=== PATIENT | male | born 1990 | race Caucasian/White ===

== ENCOUNTER 2017-05-28 10:44 | Emergency (ER) | payer BC ==
[2017-05-28 10:53] VITALS: BP 138/89
--- NOTE | 2017-05-28 11:47 | UC ---
Abdominal Pain Male HPI - HPI Summary HPI Summary: This is an otherwise healthy 27 yo male who presents with c/o of diarrhea and abdominal pain x 5d. He denies associated nausea or vomiting. His appetite has been fair. Denies associated fever. No sick contacts. He reports an associated bloated sensation. He states his pain is usually a lower abdominal pressure and cramping sensation. His stool is loose to watery. No hematachezia. He reports recent black stool but also started Pepto for symptom management. In addition to Pepto he's been using simethicone with some improvement. - History of Current Complaint Chief Complaint: UCAbdominalPain Stated Complaint: ABDOMINAL COMPLAINT - Allergies/Home Medications Allergies/Adverse Reactions: Allergies Allergy/AdvReac Type Severity Reaction Status Date / Time No Known Allergies Allergy Verified 05/28/17 10:53 PMH/Surg Hx/FS Hx/Imm Hx Previously Healthy: Yes - Surgical History Surgical History: None - Family History Known Family History: Positive: None - Social History Alcohol Use: Rare Substance Use Type: None Smoking Status (MU): Never Smoked Tobacco Review of Systems Constitutional: Negative Skin: Negative Eyes: Negative ENT: Negative Respiratory: Negative Cardiovascular: Negative Gastrointestinal: Abdominal Pain, Diarrhea Genitourinary: Negative Motor: Negative Neurovascular: Negative Musculoskeletal: Negative Neurological: Negative Psychological: Negative All Other Systems Reviewed And Are Negative: Yes Physical Exam Triage Information Reviewed: Yes Appearance: Well-Appearing Vital Signs: Initial Vital Signs Temp 99.1 F 05/28/17 10:49 Pulse 80 05/28/17 10:49 Resp 16 05/28/17 10:49 BP 138/89 05/28/17 10:49 Pulse Ox 100 05/28/17 10:49 Vital Signs Reviewed: Yes ENT Exam: Normal ENT: Positive: Hearing grossly normal Neck: Positive: Supple, Nontender Respiratory: Positive: Chest non-tender, Lungs clear. Negative: Crackles, Rhonchi, Stridor, Wheezing Cardiovascular: Positive: RRR, No Murmur Abdomen Description: Positive: Nontender, Soft Bowel Sounds: Positive: Present Musculoskeletal: Positive: Strength Intact Neurological: Positive: Alert, Muscle Tone Normal Psychological Exam: Normal Skin Exam: Normal Abd Pain Male Course/Dx - Course Course Of Treatment: This is an otherwise healthy 27 yo male who presented with c/o abd pain and diarrhea for 5d. Normal PE. Symptoms sound consistent with infectious colitis. Empirically treat with Cipro and Flagyl. Patient provided with equipment to collect stool sample at home. - Differential Dx/Clinical Impression Differential Diagnosis/HQI/PQRI: Appendicitis, Diverticulitis, Gall Bladder Disease, Peptic Ulcer Disease Provider Diagnoses: 1. Abdominal pain - presumed infectious colitis Discharge - Discharge Plan Condition: Stable Disposition: HOME Prescriptions: Ciprofloxacin TAB* [Cipro 500 MG TAB*] 500 mg PO BID #20 tab Metronidazole [Flagyl 500 MG TAB] 500 mg PO TID #30 tab Patient Education Materials: Infectious Colitis (ED) Referrals: Sary Schultz MD [Primary Care Provider] - If Needed Additional Instructions: Activity: As tolerated Instructions: 1. Take antibiotics as directed 2. Avoid using alcohol while taking antibiotics 3. Please proceed to the ER for further evaluation if symptoms get worse 4. Please provide stool sample if possible
== END 2017-05-28 11:58 | disposition home or self-care (01) ==
LOC: UCEAST 10:44
DX: R10.84 Generalized abdominal pain (principal)
CPT/HCPCS: 99212; G0463

== ENCOUNTER 2018-12-07 09:11 | Emergency (ER) | payer OTHER ==
[2018-12-07 09:26] VITALS: BP 129/78
--- NOTE | 2018-12-07 09:47 | UC ---
Lower Extremity/Ankle HPI - HPI Summary HPI Summary: 28 y/o male presents to the urgent care c/o right foot pain s/p stepping off a step and landing uneven pavement last night. Pt states he was able to bear weight w/ limping after it happened. However, this morning when he woke up he couldn't bear weight due to pain. He took Tylenol PO to alleviate symptoms. Pain is 8/10 localized on the lateral side of his Rt foot associated w/ mild bruising at the base of his pinky toe. Pt denies numbness or tingling sensation , calf pain, SOB, chest pain, abdominal pain, N/V/d. - History of Current Complaint Chief Complaint: UCLowerExtremity Stated Complaint: ANKLE INJURY Time Seen by Provider: 12/07/18 09:46 Hx Obtained From: Patient Onset/Duration: Sudden Onset, Lasting Days - 1 day, Still Present Severity Initially: Moderate Severity Currently: Moderate Pain Intensity: 8 Pain Scale Used: 0-10 Numeric Aggravating Factor(s): Ambulation Alleviating Factor(s): Rest, Elevation, Ice, OTC Meds Able to Bear Weight: No - Risk Factors Gout Risk Factors: Negative DVT Risk Factors: Negative Septic Arthritis Risk Factor: Negative - Allergies/Home Medications Allergies/Adverse Reactions: Allergies Allergy/AdvReac Type Severity Reaction Status Date / Time naproxen [From Aleve] Allergy rash Verified 12/07/18 09:27 blotchy swelling Home Medications: Home Medications NK [No Home Medications Reported] 12/07/18 [History Confirmed 12/07/18] PMH/Surg Hx/FS Hx/Imm Hx Previously Healthy: Yes - Pt denies PMHX - Surgical History Surgical History: None - Family History Known Family History: Positive: Hypertension - Social History Occupation: Employed Full-time Lives: With Family Alcohol Use: Occasionally Substance Use Type: None Smoking Status (MU): Never Smoked Tobacco Review of Systems All Other Systems Reviewed And Are Negative: Yes Constitutional: Positive: Negative Skin: Positive: Negative Eyes: Positive: Negative ENT: Positive: Negative Respiratory: Positive: Negative Cardiovascular: Positive: Negative Gastrointestinal: Positive: Negative Genitourinary: Positive: Negative Motor: Positive: Negative Neurovascular: Positive: Negative Musculoskeletal: Positive: Decreased ROM - rt foot, Other: - Rt foot pain on lateral side s/p injury and unable to bear weight Neurological: Positive: Negative Psychological: Positive: Negative Is Patient Immunocompromised?: No Physical Exam - Summary Physical Exam Summary: Vital Signs Reviewed: Yes General : well developed, well nourished male w/o any apparent pain distress Eyes: Positive: Conjunctiva Clear - PERRLA, EOMI ENT: Positive: Normal ENT inspection, Hearing grossly normal, Pharynx normal, TMs normal Neck: Positive: Supple, Nontender, No Lymphadenopathy Respiratory: Positive: Chest non-tender, Lungs clear, Normal breath sounds, No respiratory distress Cardiovascular: Positive: RRR, No Murmur, Pulses Normal Abdomen Description: Positive: Nontender, No Organomegaly, Soft. Negative: CVA Tenderness (R), CVA Tenderness (L) Bowel Sounds: Positive: Present Musculoskeletal: Positive: Strength Intact, ROM Intact, No Edema, Rt Foot/Toes: Pt is unable to bear weight. RT foot :No surface trauma, ecchymosis, erythema, lesions, ulcers or break in skin integrity. The R foot is without obvious asymmetry or deformity when compared to the L foot. No bony step-off, No tenderness to palpation over toes, point tenderness over the dorsal and lateral side of mid foot and base of the 4th and 5th metatarsal and sole at the same level, no tenderness of hindfoot, Decrease plantar/dorsiflexion, inversion/ eversion due to pain. Distal motor and neurovascular status are intact. Neurological Exam: Normal Psychological Exam: Normal Skin Exam: Normal Triage Information Reviewed: Yes Vital Signs: Initial Vital Signs Temp 97.7 F 12/07/18 09:21 Pulse 93 12/07/18 09:21 Resp 17 12/07/18 09:21 BP 129/78 12/07/18 09:21 Pulse Ox 100 12/07/18 09:21 Lower Extremity Course/Dx - Course Course Of Treatment: 28 y/o male presents to the urgent care c/o right foot pain s/p stepping off a step and landing uneven pavement last night. Pt states he was able to bear weight w/ limping after it happened. However, this morning when he woke up he couldn't bear weight due to pain. He took Tylenol PO to alleviate symptoms. Pain is 8/10 localized on the lateral side of his Rt foot associated w/ mild bruising at the base of his pinky toe. Pt denies numbness or tingling sensation , calf pain, SOB, chest pain, abdominal pain, N/V/d. Hx obtained. RT foot X-ray ordered, Impression: No fracture or traumatic misalignment of the left right as per radiologists. Probably a Rt foot sprain. Pt's foot immobilized with chaitanya- bandage and given a post-op shoe to avoid flexion. also given crutches since he states he can't bear weight and for comfort. Advised RICE, and continue taking Tylenol PO since he is allergic to NSAIDs. Advised If not improvement of symptoms to f/u in [address] Giordano referral for further evaluation and treatment. d/C instructions explained. Pt understood and agreed with plan of care - Differential Dx/Diagnosis Differential Diagnosis/HQI/PQRI: Contusion, Fracture (Closed), Sprain, Strain, Tendonitis Provider Diagnosis: Right foot pain, Sprain of right foot Discharge - Sign-Out/Discharge Documenting (check all that apply): Patient Departure - d/c home All imaging exams completed and their final reports reviewed: Yes - Discharge Plan Condition: Stable Disposition: HOME Patient Education Materials: Foot Sprain (ED) Forms: *Work Release Referrals: Sary Schultz MD [Primary Care Provider] - 1 Week Yonatan Giordano MD [Medical Doctor] - 1 Day Additional Instructions: 1-Please take Tylenol PO q6-8hrs medications as directed to alleviate pain and swelling. 2-Please apply ice, keep your foot immobilized with the Chaitanya bandage and post- op shoe. Use the crutches to avoid weight bearing . Avoid strenuous exercise or standing for long periods of time. elevate your foot 3- Please f/u with Orthopedic Dr Giordano if not improvement of symptoms in 1 week for further evaluation and treatment. - Billing Disposition and Condition Condition: STABLE Disposition: Home
== END 2018-12-07 10:45 | disposition home or self-care (01) ==
LOC: UCEAST 09:11
DX: M79.671 Pain in right foot (principal); S93.601A Unspecified sprain of right foot, initial encounter; Z88.8 Allergy status to other drugs, medicaments and biological substances; X58.XXXA Exposure to other specified factors, initial encounter; Y92.9 Unspecified place or not applicable
CPT/HCPCS: 99213; G0463

== ENCOUNTER 2019-07-31 17:52 | Emergency (ER) | payer OTHER ==
[2019-07-31 18:50] VITALS: BP 127/78
--- NOTE | 2019-07-31 19:43 | UC ---
Throat Pain/Nasal Yogesh HPI - HPI Summary HPI Summary: 29 yo with congestion and sore throat for the past week. Ear pressure has increased, and he has worsening sore throat and dysphagia. Minimal cough. - History of Current Complaint Chief Complaint: UCRespiratory Stated Complaint: SINUS CONGESTION, AND SORE THROAT Time Seen by Provider: 07/31/19 19:33 Hx Obtained From: Patient Onset/Duration: Gradual Onset, Lasting Days - 7 Pain Intensity: 5 Cough: None Associated Signs & Symptoms: Positive: Dysphagia, Sinus Discomfort, Nasal Discharge - Epiglottits Risk Factors Epiglottis Risk Factors: Negative - Allergies/Home Medications Allergies/Adverse Reactions: Allergies Allergy/AdvReac Type Severity Reaction Status Date / Time naproxen [From Aleve] Allergy rash Verified 07/31/19 18:50 blotchy swelling PMH/Surg Hx/FS Hx/Imm Hx Previously Healthy: Yes - Surgical History Surgical History: None - Family History Known Family History: Positive: Hypertension - Social History Occupation: Employed Full-time Lives: With Family Alcohol Use: Daily Alcohol Amount: 3 Substance Use Type: None Smoking Status (MU): Never Smoked Tobacco Review of Systems All Other Systems Reviewed And Are Negative: Yes Constitutional: Positive: Fatigue ENT: Positive: Sore Throat, Ear Ache, Sinus Pain/Tenderness Respiratory: Positive: Negative Cardiovascular: Positive: Negative Gastrointestinal: Positive: Negative Genitourinary: Positive: Negative Motor: Positive: Negative Neurovascular: Positive: Negative Musculoskeletal: Positive: Negative Neurological: Positive: Negative Psychological: Positive: Negative Is Patient Immunocompromised?: No Physical Exam Triage Information Reviewed: Yes Appearance: No Pain Distress, Ill-Appearing Vital Signs: Initial Vital Signs Temp 98.4 F 07/31/19 18:44 Pulse 66 07/31/19 18:44 Resp 16 07/31/19 18:44 BP 127/78 07/31/19 18:44 Pulse Ox 100 07/31/19 18:44 ENT: Positive: Pharyngeal erythema, Tonsillar swelling - large red tonsils without exudate, right greater than left.. Negative: Tonsillar exudate Neck: Positive: Supple, Nontender, Enlarged Nodes @ - tonsillar nodes only Respiratory: Positive: Lungs clear, Normal breath sounds Cardiovascular: Positive: RRR, No Murmur Throat Pain/Nasal Course/Dx - Course Course Of Treatment: amoxicillin for treatment of tonsillitis, ibprofen for pain control. - Differential Dx/Diagnosis Differential Diagnosis/HQI/PQRI: Laryngitis, Peritonsillar Abscess, Pharyngitis , Tonsillitis Provider Diagnosis: Tonsillitis Discharge ED - Sign-Out/Discharge Documenting (check all that apply): Patient Departure All imaging exams completed and their final reports reviewed: No Studies - Discharge Plan Condition: Stable Disposition: HOME Prescriptions: Amoxicillin PO (*) [Amoxicillin 875 MG (*)] 875 mg PO BID #20 tab Patient Education Materials: Tonsillitis (ED) Referrals: Sary Schultz MD [Primary Care Provider] - Additional Instructions: Amoxicillin has been prescribed for tonsillitis. Use ibuprofen 600mg up to 3 times per day for relief of pain. - Billing Disposition and Condition Condition: STABLE Disposition: Home
== END 2019-07-31 20:00 | disposition home or self-care (01) ==
LOC: UCEAST 17:52
DX: J03.90 Acute tonsillitis, unspecified (principal); R05 Cough; R53.83 Other fatigue; Z88.6 Allergy status to analgesic agent
CPT/HCPCS: 99212; G0463

== ENCOUNTER 2019-09-07 07:57 | Emergency (ER) | payer OTHER ==
[2019-09-07 08:13] VITALS: BP 120/81
--- NOTE | 2019-09-07 08:20 | UC ---
Respiratory Complaint HPI - HPI Summary HPI Summary: Patient is 29 year old male , who present today to the urgent care with upper respiratory symptoms for past 1 week. He reports cold-like sx, fatigue, bilat, ear pain, severe cough, for 1 week. As per patient, cough is interfering with sleep. Denies any fevers. No sick contact Has some sore throat but no dysphagia Cough is productive of yellowish/greenish sputum Denies any chest pain or shortness of breath . Denies any abdominal pain , nausea or vomiting , diarrhea or constipation. - History of Current Complaint Chief Complaint: UCRespiratory Stated Complaint: URI Time Seen by Provider: 09/07/19 08:07 Hx Obtained From: Patient Pain Intensity: 6 - Allergies/Home Medications Allergies/Adverse Reactions: Allergies Allergy/AdvReac Type Severity Reaction Status Date / Time naproxen [From Aleve] Allergy rash Verified 09/07/19 08:01 blotchy swelling Home Medications: Home Medications Phenylephrine/Dm/Acetaminop/GG [Mucinex Uqbc-Ziq-Gqradqndjf Lq] 177 ml PO ONCE 09/07/19 [History Confirmed 09/07/19] PMH/Surg Hx/FS Hx/Imm Hx - Additional Past Medical History Additional PMH: Past Medical History : None Past Surgical History: No Past History of Procedure Family History : non contributory Social History : Daily alcohol, non smoker, no drug use. Previously Healthy: Yes - Surgical History Surgical History: None - Family History Known Family History: Positive: None, Hypertension, Non-Contributory - Social History Alcohol Use: Daily Alcohol Amount: 3 drinks/ day Substance Use Type: None Smoking Status (MU): Never Smoked Tobacco Review of Systems All Other Systems Reviewed And Are Negative: Yes Constitutional: Positive: Fatigue Skin: Positive: Negative Eyes: Positive: Negative ENT: Positive: Sore Throat, Ear Ache Respiratory: Positive: Cough - productive Cardiovascular: Positive: Negative Gastrointestinal: Positive: Negative Genitourinary: Positive: Negative Motor: Positive: Negative Neurovascular: Positive: Negative Musculoskeletal: Positive: Negative Neurological: Positive: Negative Psychological: Positive: Negative Is Patient Immunocompromised?: No Physical Exam - Summary Physical Exam Summary: Physical Exam: Const: Appears well. No signs of apparent distress present. Alert and oriented x 3. Musculo: Walks with a normal gait. Head/Face: Atraumatic, normocephalic on inspection. Eyes: EOMI and PERRLA in both eyes. Conjunctivae clear. No discharge noted ENT: Hearing normal, TM normal appearing bilaterally with some fluid noted behind the tympanic membrane bilaterally but no erythema No tenderness to palpation on maxillary and frontal sinus. There is pharyngeal erythema and right tonsillar exudates . Uvula is midline. submandibular lymphadenopathy noted. Respiratory: Respirations are unlabored. Lungs clear to auscultation bilaterally, no wheezing , rhonchi or rales noted . CVS: Regular rate and Rhythm, S1S2 normal , no murmurs identified. Extremities: Peripheral circulation is grossly normal. Pulses 2+ Abdomen : Soft non tender , nondistended , Bowel sounds present . No guarding , rebound tenderness or rigidity noted. Skin: No lesions or rash located on the upper extremities or on the lower extremities. Neuro: Cranial nerves II to XII intact, motor and sensory intact. DTR Intact bilaterally. Mood is normal. Affect is normal. Triage Information Reviewed: Yes Vital Signs: Initial Vital Signs Temp 97.9 F 09/07/19 08:02 Pulse 82 09/07/19 08:02 Resp 16 09/07/19 08:02 BP 124/75 09/07/19 08:02 Pulse Ox 100 09/07/19 08:02 Vital Signs Reviewed: Yes Respiratory Course/Dx - Course Course Of Treatment: During the visit today, we obtained a rapid strep test which was negative. Likely viral upper respiratory illness and we discussed supportive management. Possibility of atypical pneumonia with productive cough cannot be completely ruled out. I will send the Z-Lea for delayed refill if no improvement over next 2-3 days. I will send a cough medication and decongestant.. Patient expressed understanding . - Differential Dx/Diagnosis Provider Diagnosis: Viral URI with cough Discharge ED - Sign-Out/Discharge Documenting (check all that apply): Patient Departure All imaging exams completed and their final reports reviewed: No Studies - Discharge Plan Condition: Stable Disposition: HOME Prescriptions: Azithromyxin LEA (NF) [Z-Lea (Zithromax) 250 mg tabs #6] 2 tab PO .TODAY, THEN 1 DAILY #6 tab Codeine Phosphate/Guaifenesin [Guaifen-Codeine 100-10 mg/5 ml] 5 ml PO Q8H PRN 7 Days #1 bottle MDD 15 ml PRN Reason: Cough Loratadine/Pseudoephedrine [Claritin-D 24 Hour Tablet] 1 each PO DAILY 7 Days # 7 tab.er.24h Patient Education Materials: Viral Syndrome (ED) Referrals: Sary Schultz MD [Primary Care Provider] - 1 Week Additional Instructions: Please start taking the medication as prescribed to the pharmacy . Maintain hydration Salt water gargles Follow up with your primary care doctor in 1 week I will send the Z-Lea for delayed refill if no improvement over next 2-3 days. Patients blood pressure slightly high in prehypertensive range and Urgent care today , plan follow up with PCP for better control Return to Urgent care / ER if symptoms get worse. - Billing Disposition and Condition Condition: STABLE Disposition: Home
== END 2019-09-07 09:25 | disposition home or self-care (01) ==
LOC: UCEAST 07:57
DX: J06.9 Acute upper respiratory infection, unspecified (principal); R05 Cough; H92.03 Otalgia, bilateral; R53.83 Other fatigue; Z88.6 Allergy status to analgesic agent
CPT/HCPCS: 87651; 99212; G0463